=== PATIENT | female | born 1980 | race African-American/Black ===

== ENCOUNTER 2018-11-25 02:22 | Emergency (ER) | payer MEDICAID, OTHER ==
[~2018-11-25] VITALS: Ht 167.6 cm; Wt 108.0 kg
[2018-11-25] MEDS ORDERED: KETOROLAC 60MG/2ML VIAL IM ONE (06:30)
[2018-11-25] MEDS ORDERED: ALPRAZOLAM 0.25 MG TABLET PO ONE (07:15)
[2018-11-25 07:50] VITALS: BP 138/87
== END 2018-11-25 07:55 | disposition home or self-care (01) ==
LOC: ER 02:22
DX: F43.0 Acute stress reaction (principal); G44.209 Tension-type headache, unspecified, not intractable
CPT/HCPCS: 96372; 99283; J1885